=== PATIENT | male | born 1980 | race Caucasian/White ===

== ENCOUNTER 2017-08-12 10:58 | Emergency (ER) | payer MEDICAID ==
[~2017-08-12] VITALS: Ht 182.9 cm; Wt 105.0 kg
[2017-08-12 11:13] VITALS: BP 209/122
== END 2017-08-12 16:15 | disposition home or self-care (01) ==
LOC: ER 16:02
DX: B86 Scabies (principal); L25.9 Unspecified contact dermatitis, unspecified cause; F17.200 Nicotine dependence, unspecified, uncomplicated; I10 Essential (primary) hypertension
CPT/HCPCS: 99283

== ENCOUNTER 2017-09-14 11:25 | Emergency (ER) | payer MEDICAID ==
[~2017-09-14] VITALS: Ht 182.9 cm; Wt 106.0 kg
[2017-09-14] MEDS ORDERED: PREDNISONE 20MG TABLET PO ONE (15:45)
[2017-09-14] MEDS ORDERED: BENAZEPRIL 20MG TABLET PO ONE (15:45)
[2017-09-14 16:43] VITALS: BP 193/126
== END 2017-09-14 17:32 | disposition home or self-care (01) ==
LOC: ER 15:21
DX: L25.9 Unspecified contact dermatitis, unspecified cause (principal); L00 Staphylococcal scalded skin syndrome; L49.0 Exfoliation due to erythematous condition involving less than 10 percent of body surface; I10 Essential (primary) hypertension; F17.200 Nicotine dependence, unspecified, uncomplicated
CPT/HCPCS: 99283; J7512